=== PATIENT | male | born 1990 ===

== ENCOUNTER 2016-02-11 08:16 | Emergency (ER) | payer SELFPAY ==
--- NOTE | 2016-02-11 09:05 | EDDOCDS ---
Nurse's Notes [facility] Name: Micah Bo Age: 25 yrs Sex: Male : 1990 Arrival Date: 02/11/2016 Time: 08:16 Bed TR1 Private MD: Diagnosis: Low back pain Presentation: 02/10 08:31 Presenting complaint: Patient states: Back pain began 7-8 months ago "tweeked it" a few mlb1 days ago. Adult Sepsis Screening: The patient does not have new or worsening altered mentation. Patient's respiratory rate is less than 22. Systolic blood pressure is greater than 100. Patient has a qSOFA score of 0- Negative Sepsis Screen. Suicide/Homicide risk assessment- the patient denies having any suicidal and/or homicidal ideations and does not present with any other emotional, behavioral or mental health complaints. 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 Transition of care: patient was not received from another setting of care. 08:31 Acuity: LOBO Level 4 mlb1 08:31 Method Of Arrival: Walkin/Carried/Asstd mlb1 Triage Assessment: 08:32 General: Appears in no apparent distress, Behavior is appropriate for age, cooperative. mlb1 Pain: Location: low back area and mid back area Pain currently is 9 out of 10 on a pain scale. Pt Declines HIV testing. Historical: - Allergies: no known allergies; - Home Meds: 1. none - PMHx: none; - PSHx: none; - Social history: Smoking status: Patient states was never smoker of tobacco. No barriers to communication noted, The patient speaks fluent Portuguese, Speaks appropriately for age. - Family history: Not pertinent. - : The pt / caregiver states he / she is not on anticoagulants. Home medication list is obtained from the patient. - Exposure Risk Screening:: None identified. Screenin:03 Screening information is obtained from the patient. Fall risk: No risks identified. mlb1 Assistance ADL's: requires no assistance with activities of daily living. Abuse/DV Screen: The patient / caregiver reports he/she is: not in a situation that causes fear, pain or injury. Nutritional screening: No deficits noted. Advance Directives: Currently, there is no health care proxy. home support is adequate. Assessment: 09:03 General: Appears in no apparent distress, Behavior is appropriate for age, cooperative. mlb1 Pain: Location: mid back area and low back area Pain currently is 9 out of 10 on a pain scale. Respiratory: No deficits noted. Derm: Skin is pink, warm & dry. Vital Signs: 08:23 BP 141 / 64; Pulse 65; Resp 18; Temp 97.0; Pulse Ox 98% on R/A; Weight 90.72 kg (R); ct3 Height 5 ft. 6 in. (167.64 cm) (R); Pain 9/10; 08:23 Body Mass Index 32.28 (90.72 kg, 167.64 cm) ct3 ED Course: 08:17 Patient visited by Alon Sevilla Reg. pm4 08:17 Patient moved to Waiting pm4 08:24 Patient visited by Nicole Leung PCA. ct3 08:31 Patient visited by Lit Elise, RN. mlb1 08:31 Patient moved to Triage 1 mlb1 08:32 Patient visited by Lit Elise, RN. mlb1 08:32 Triage Initiated mlb1 08:34 Faraz Whittaker PA is PHCP. btw 08:34 Natalie Hernandez MD is Attending Physician. btw 08:34 Patient visited by Faraz Whittaker PA. btw 08:44 Eder Cox [facility] is Referral Physician. btw 08:50 Patient moved to TR1 mlb1 09:04 The patient / caregiver is instructed regarding the plan of care and ED course. mlb1 09:04 No IV's were initiated during this patient's visit. No procedures done that require mlb1 assistance. Order Results: There are currently no results for this order. Outcome: 08:44 Discharge ordered by Provider. btw 09:04 Discharge Assessment: Patient awake, alert and oriented x 3. No cognitive and/or mlb1 functional deficits noted. Patient verbalized understanding of disposition instructions. patient administered narcotics - no. The following High Risk Discharge criteria are identified: None. Discharged to home ambulatory. Condition: good. Discharge instructions given to patient, Instructed on discharge instructions, follow up and referral plans. medication usage, no driving heavy equipment, Demonstrated understanding of instructions, medications, Pt was receptive of discharge instructions/ teaching. Prescriptions given X 2. No special radiology studies were completed. Property sent home with patient. 09:04 Patient left the ED. mlb1 Signatures: Lit Elise, RN RN mlb1 Faraz Whittaker PA PA btw Nicole Leung, SUPERVISOR [employer]ES [employer] BUILDINGS SUPERVISOR [employer] BUILDINGS ct3 Alon Sevilla, Reg Reg pm4 MTDD
--- NOTE | 2016-02-11 09:05 | EDDOCDS ---
Physician Documentation [facility] Name: Micah Bo Age: 25 yrs Sex: Male : 1990 Arrival Date: 02/11/2016 Time: 08:16 Bed TR1 Private MD: Disposition: 02/11/16 08:44 Discharged to Home/Self Care. Impression: Low back pain. - Condition is Stable. - Discharge Instructions: Chronic Back Pain, Back Pain, Adult, [id number]. - Prescriptions for Medrol ([place]) 4 mg Oral Tablets, Dose Pack - take 1 Pack by ORAL route as directed - follow package instructions; 1 packet. Robaxin- 750 750 mg Oral Tablet - take 1 tablet by ORAL route every 6 hours As needed; 40 tablet. - Medication Reconciliation, Local Pharmacy Hours form. - Follow up: Eder Cox [facility]; When: Today; Reason: Further diagnostic work-up, Recheck today's complaints, Continuance of care. - Problem is an acute exacerbation. - Symptoms are unchanged. - Notes: PLEASE BE CERTAIN TO READ AND FOLLOW YOUR DISCHARGE INSTRUCTIONS CAREFULLY! Historical: - Allergies: no known allergies; - Home Meds: 1. none - PMHx: none; - PSHx: none; - Social history: Smoking status: Patient states was never smoker of tobacco. No barriers to communication noted, The patient speaks fluent [place], Speaks appropriately for age. - Family history: Not pertinent. - : The pt / caregiver states he / she is not on anticoagulants. Home medication list is obtained from the patient. - Exposure Risk Screening:: None identified. Vital Signs: 02/10 08:23 BP 141 / 64; Pulse 65; Resp 18; Temp 97.0; Pulse Ox 98% on R/A; Weight 90.72 kg / 200 ct3 lbs (R); Height 5 ft. 6 in. (167.64 cm) (R); Pain 9/10; 08:23 Body Mass Index 32.28 (90.72 kg, 167.64 cm) ct3 Signatures: Lit Elise RN RN mlb1 Faraz Whittaker PA PA btw MTDD
--- NOTE | 2016-02-13 10:06 | EDDOCDS ---
Physician Documentation [facility] Name: Micah Bo Age: 25 yrs Sex: Male : 1990 Arrival Date: 02/11/2016 Time: 08:16 Bed TR1 Private MD: Disposition: 02/11/16 08:44 Discharged to Home/Self Care. Impression: Low back pain. - Condition is Stable. - Discharge Instructions: Chronic Back Pain, Back Pain, Adult, [id number]. - Prescriptions for Medrol ([place]) 4 mg Oral Tablets, Dose Pack - take 1 Pack by ORAL route as directed - follow package instructions; 1 packet. Robaxin- 750 750 mg Oral Tablet - take 1 tablet by ORAL route every 6 hours As needed; 40 tablet. - Medication Reconciliation, Local Pharmacy Hours form. - Follow up: Eder Cox [facility]; When: Today; Reason: Further diagnostic work-up, Recheck today's complaints, Continuance of care. - Problem is an acute exacerbation. - Symptoms are unchanged. - Notes: PLEASE BE CERTAIN TO READ AND FOLLOW YOUR DISCHARGE INSTRUCTIONS CAREFULLY! Historical: - Allergies: no known allergies; - Home Meds: 1. none - PMHx: none; - PSHx: none; - Social history: Smoking status: Patient states was never smoker of tobacco. No barriers to communication noted, The patient speaks fluent Vietnamese, Speaks appropriately for age. - Family history: Not pertinent. - : The pt / caregiver states he / she is not on anticoagulants. Home medication list is obtained from the patient. - Exposure Risk Screening:: None identified. Vital Signs: 02/10 08:23 BP 141 / 64; Pulse 65; Resp 18; Temp 97.0; Pulse Ox 98% on R/A; Weight 90.72 kg / 200 ct3 lbs (R); Height 5 ft. 6 in. (167.64 cm) (R); Pain 9/10; 08:23 Body Mass Index 32.28 (90.72 kg, 167.64 cm) ct3 MDM: 15:05 T-Sheet-- Draft Copy was scanned into [employer] and attached to record. gb Signatures: Sandra Galvan, Reg Reg gb Lit Elise RN RN mlb1 Faraz Whittaker PA PA btw The chart was reviewed and I authenticate all verbal orders and agree with the evaluation and treatment provided.Attachments: 15:05 T-Sheet-- Draft Copy gb Chart Complete MTDD
--- NOTE | 2016-02-13 10:06 | EDDOCDS ---
Physician Documentation [facility] Name: Micah Bo Age: 25 yrs Sex: Male : 1990 Arrival Date: 02/11/2016 Time: 08:16 Bed TR1 Private MD: Disposition: 02/11/16 08:44 Discharged to Home/Self Care. Impression: Low back pain. - Condition is Stable. - Discharge Instructions: Chronic Back Pain, Back Pain, Adult, [id number]. - Prescriptions for Medrol ([place]) 4 mg Oral Tablets, Dose Pack - take 1 Pack by ORAL route as directed - follow package instructions; 1 packet. Robaxin- 750 750 mg Oral Tablet - take 1 tablet by ORAL route every 6 hours As needed; 40 tablet. - Medication Reconciliation, Local Pharmacy Hours form. - Follow up: Eder Cox [facility]; When: Today; Reason: Further diagnostic work-up, Recheck today's complaints, Continuance of care. - Problem is an acute exacerbation. - Symptoms are unchanged. - Notes: PLEASE BE CERTAIN TO READ AND FOLLOW YOUR DISCHARGE INSTRUCTIONS CAREFULLY! Historical: - Allergies: no known allergies; - Home Meds: 1. none - PMHx: none; - PSHx: none; - Social history: Smoking status: Patient states was never smoker of tobacco. No barriers to communication noted, The patient speaks fluent Lithuanian, Speaks appropriately for age. - Family history: Not pertinent. - : The pt / caregiver states he / she is not on anticoagulants. Home medication list is obtained from the patient. - Exposure Risk Screening:: None identified. Vital Signs: 02/10 08:23 BP 141 / 64; Pulse 65; Resp 18; Temp 97.0; Pulse Ox 98% on R/A; Weight 90.72 kg / 200 ct3 lbs (R); Height 5 ft. 6 in. (167.64 cm) (R); Pain 9/10; 08:23 Body Mass Index 32.28 (90.72 kg, 167.64 cm) ct3 MDM: 15:05 T-Sheet-- Draft Copy was scanned into [employer] and attached to record. gb Signatures: Sandra Galvan, Reg Reg gb Lit Elise RN RN mlb1 Faraz Whittaker PA PA btw The chart was reviewed and I authenticate all verbal orders and agree with the evaluation and treatment provided.Attachments: 15:05 T-Sheet-- Draft Copy gb Chart Complete MTDD
--- NOTE | 2016-02-13 10:06 | EDDOCDS ---
Nurse's Notes [facility] Name: Micah Bo Age: 25 yrs Sex: Male : 1990 Arrival Date: 02/11/2016 Time: 08:16 Bed TR1 Private MD: Diagnosis: Low back pain Presentation: 02/10 08:31 Presenting complaint: Patient states: Back pain began 7-8 months ago "tweeked it" a few mlb1 days ago. Adult Sepsis Screening: The patient does not have new or worsening altered mentation. Patient's respiratory rate is less than 22. Systolic blood pressure is greater than 100. Patient has a qSOFA score of 0- Negative Sepsis Screen. Suicide/Homicide risk assessment- the patient denies having any suicidal and/or homicidal ideations and does not present with any other emotional, behavioral or mental health complaints. 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 Transition of care: patient was not received from another setting of care. 08:31 Acuity: LOBO Level 4 mlb1 08:31 Method Of Arrival: Walkin/Carried/Asstd mlb1 Triage Assessment: 08:32 General: Appears in no apparent distress, Behavior is appropriate for age, cooperative. mlb1 Pain: Location: low back area and mid back area Pain currently is 9 out of 10 on a pain scale. Pt Declines HIV testing. Historical: - Allergies: no known allergies; - Home Meds: 1. none - PMHx: none; - PSHx: none; - Social history: Smoking status: Patient states was never smoker of tobacco. No barriers to communication noted, The patient speaks fluent Croatian, Speaks appropriately for age. - Family history: Not pertinent. - : The pt / caregiver states he / she is not on anticoagulants. Home medication list is obtained from the patient. - Exposure Risk Screening:: None identified. Screenin:03 Screening information is obtained from the patient. Fall risk: No risks identified. mlb1 Assistance ADL's: requires no assistance with activities of daily living. Abuse/DV Screen: The patient / caregiver reports he/she is: not in a situation that causes fear, pain or injury. Nutritional screening: No deficits noted. Advance Directives: Currently, there is no health care proxy. home support is adequate. Assessment: 09:03 General: Appears in no apparent distress, Behavior is appropriate for age, cooperative. mlb1 Pain: Location: mid back area and low back area Pain currently is 9 out of 10 on a pain scale. Respiratory: No deficits noted. Derm: Skin is pink, warm & dry. Vital Signs: 08:23 BP 141 / 64; Pulse 65; Resp 18; Temp 97.0; Pulse Ox 98% on R/A; Weight 90.72 kg (R); ct3 Height 5 ft. 6 in. (167.64 cm) (R); Pain 9/10; 08:23 Body Mass Index 32.28 (90.72 kg, 167.64 cm) ct3 ED Course: 08:17 Patient visited by Alon Sevilla Reg. pm4 08:17 Patient moved to Waiting pm4 08:24 Patient visited by Nicole Leung PCA. ct3 08:31 Patient visited by Lit Elise, RN. mlb1 08:31 Patient moved to Triage 1 mlb1 08:32 Patient visited by Lit Elise, RN. mlb1 08:32 Triage Initiated mlb1 08:34 Faraz Whittaker PA is PHCP. btw 08:34 Natalie Hernandez MD is Attending Physician. btw 08:34 Patient visited by Faraz Whittaker PA. btw 08:44 Eder Cox [facility] is Referral Physician. btw 08:50 Patient moved to TR1 mlb1 09:04 The patient / caregiver is instructed regarding the plan of care and ED course. mlb1 09:04 No IV's were initiated during this patient's visit. No procedures done that require mlb1 assistance. 15:05 T-Sheet-- Draft Copy was scanned into [employer] and attached to record. gb Order Results: There are currently no results for this order. Outcome: 08:44 Discharge ordered by Provider. btw 09:04 Discharge Assessment: Patient awake, alert and oriented x 3. No cognitive and/or mlb1 functional deficits noted. Patient verbalized understanding of disposition instructions. patient administered narcotics - no. The following High Risk Discharge criteria are identified: None. Discharged to home ambulatory. Condition: good. Discharge instructions given to patient, Instructed on discharge instructions, follow up and referral plans. medication usage, no driving heavy equipment, Demonstrated understanding of instructions, medications, Pt was receptive of discharge instructions/ teaching. Prescriptions given X 2. No special radiology studies were completed. Property sent home with patient. 09:04 Patient left the ED. mlb1 Signatures: Sandra Galvan, Reg Reg gb Lit Elise RN RN mlb1 Faraz Whittaker PA PA btw Nicole Leung, EVICTION SPECIALIST EVICTION SPECIALIST ct3 Alon Sevilla, Reg Reg pm4 Chart Complete MTDD
== END 2016-02-11 09:04 | disposition home or self-care (01) ==
LOC: M ED 08:16
DX: M54.5 Low back pain (principal); G89.29 Other chronic pain